=== PATIENT | female | born 1975 | race African-American/Black ===

== ENCOUNTER 2021-05-05 05:47 | Observation (INO) ==
[2021-05-05] MEDS ORDERED: SCOPOLAMINE 1.5 MG PATCH TRANSDERM ONE ×2 (06:59→07:30)
[2021-05-05] MEDS ORDERED: PANTOPRAZOLE 40 MG VIAL IV ONE ×2 (06:59→07:30)
[2021-05-05] MEDS ORDERED: ACETAMINOPHEN INJ 1,000 MG/100 ML VIAL IV ONE ×2 (07:00→07:30)
[2021-05-05] MEDS ORDERED: CLINDAMYCIN INJ 900 MG/50 ML PREMIX IV ONE ×2 (07:00→07:30)
[2021-05-05] MEDS ORDERED: HEPARIN 5,000 UNIT/1 ML VIAL ONE (07:07)
[2021-05-05] MEDS ORDERED: carvediloL 25 MG TABLET PO ONE ×2 (07:09→07:30)
[2021-05-05] MEDS ORDERED: HEPARIN 5,000 UNIT/1 ML VIAL SUBCUT ONE (07:30)
[2021-05-05] MEDS: LACTATED RINGERS 1,000 ML IV SCH ×4 (07:30→20:03)
[2021-05-05] MEDS ORDERED: HYOSCYAMINE 0.125 MG TABLET SL ONE (07:30)
[2021-05-05] MEDS ORDERED: BUPIVACAINE MPF 0.25% 30 ML VIAL ONE (09:13)
[2021-05-05] MEDS ORDERED: TISSUE ADHESIVE 1 EACH APPLICATOR TOP ONE (09:13)
[2021-05-05] MEDS ORDERED: LIDOCAINE 1%/EPI INJ 20 ML VIAL ONE (09:13)
[2021-05-05] MEDS ORDERED: BUPIVACAINE LIPOSOMAL 20 ML/266 MG VIAL ONE (09:22)
[2021-05-05] MEDS ORDERED: DEXAMETHASONE 4 MG/1 ML VIAL ONE (09:35)
[2021-05-05] MEDS ORDERED: propofoL 200 MG/20 ML VIAL IV ONE (09:35)
[2021-05-05] MEDS ORDERED: LIDOCAINE 2% 5 ML VIAL ONE (09:35)
[2021-05-05] MEDS ORDERED: ROCURONIUM 50 MG/5 ML VIAL IV ONE (09:35)
[2021-05-05] MEDS ORDERED: fentaNYL 100 MCG/2 ML VIAL ONE (09:35)
[2021-05-05] MEDS ORDERED: SUCCINYLCHOLINE 200 MG/10 ML VIAL ONE (09:35)
[2021-05-05] MEDS ORDERED: ONDANSETRON 4 MG/2 ML VIAL ONE (09:35)
[2021-05-05] MEDS ORDERED: ePHEDrine 50 MG/ML VIAL ONE (10:38)
[2021-05-05] MEDS ORDERED: PHENYLEPHRINE 1 MG/10 ML SYRINGE IV ONE (10:58)
[2021-05-05] MEDS ORDERED: DESFLURANE 1 UNIT/15 MINUTE INH ONE (11:01)
[2021-05-05] MEDS ORDERED: CALCIUM CHLORIDE 1,000 MG/10 ML VIAL IV ONE (11:01)
[2021-05-05] MEDS ORDERED: LACTATED RINGERS 2,000 ML IV ONE (11:02)
[2021-05-05] MEDS ORDERED: INDOCYANINE GREEN 25 MG VIAL IV ONE (11:04)
[2021-05-05] MEDS ORDERED: METOCLOPRAMIDE 10 MG/2 ML VIAL ONE (11:08)
[2021-05-05] MEDS ORDERED: diphenhydrAMINE 50 MG/1 ML VIAL IV PRN (11:14)
[2021-05-05] MEDS ORDERED: HYDROcod/ACETAMIN 7.5-325 MG/15 ML UDCUP PO PRN ×2 (11:14)
[2021-05-05] MEDS ORDERED: KETOROLAC 30 MG/1 ML VIAL ONE (11:21)
[2021-05-05] MEDS ORDERED: NEOSTIGMINE 10 MG/10 ML VIAL ONE (11:23)
[2021-05-05] MEDS ORDERED: GLYCOPYRROLATE 0.4 MG/2 ML VIAL ONE (11:23)
[2021-05-05] MEDS ORDERED: ONDANSETRON 4 MG/2 ML VIAL IV PRN (12:14)
[2021-05-05] MEDS: HYDROmorphone 2 MG/1 ML VIAL IV PRN ×2 (12:20→12:25)
[2021-05-05] MEDS: CLINDAMYCIN INJ 900 MG/50 ML PREMIX IV SCH ×2 (15:26→17:07)
[2021-05-05] MEDS: ONDANSETRON 4 MG/2 ML VIAL IV PRN (17:09)
[2021-05-05] MEDS ORDERED: ACETAMINOPHEN 325 MG/10.15 ML UDCUP PO PRN (17:53)
[2021-05-05] MEDS ORDERED: HYDROmorphone 2 MG/1 ML VIAL IV ONE (20:08)
[2021-05-05] MEDS ORDERED: ONDANSETRON 4 MG/2 ML VIAL IV ONE (20:10)
[2021-05-06] MEDS: HYDROmorphone 2 MG/1 ML VIAL IV PRN ×3 (00:06→08:55)
[2021-05-06] MEDS: ONDANSETRON 4 MG/2 ML VIAL IV PRN ×5 (00:06→21:18)
[2021-05-06] MEDS: CLINDAMYCIN INJ 900 MG/50 ML PREMIX IV SCH ×2 (00:07→05:38)
[2021-05-06] MEDS: LACTATED RINGERS 1,000 ML IV SCH ×4 (03:54→23:47)
[2021-05-06] MEDS: hydrALAZINE 20 MG/1 ML VIAL IV PRN (03:55)
[2021-05-06 05:20] LABS: Basophils % 0.1 % (0.0-0.8); Hematocrit 36.8 VOL% (35.7-47.0); Hemoglobin 11.6 GM/DL (12.0-16.0); Immature Granulocytes % 0.6 %; Immature Granulocytes Absolute 0.06 #; Lymphocytes # 1.5 10*3/uL (1.4-4.0); Mean Corpuscular HGB Conc 31.5 GM/DL (32-36); Mean Corpuscular Volume 85.4 FL (87-102); Monocytes % 4.1 % (1.7-12.7); Neutrophils % 81.2 % (38.7-73.9); Platelet Count 371 T/CUMM (130-400); Red Blood Count 4.31 MC/CUMM (3.8-5.5); Red Cell Distribution Width 13.8 % (9.3-17.3); White Blood Count 10.4 T/CUMM (4-12)
[2021-05-06 05:44] LABS: Potassium 3.9 MMOL/L (3.5-5.1)
[2021-05-06] MEDS: PANTOPRAZOLE 40 MG VIAL IV SCH (08:53)
[2021-05-06] MEDS: carvediloL 25 MG TABLET PO SCH ×2 (08:54→21:19)
[2021-05-06] MEDS: SIMETHICONE CHEW 80 MG TABLET PO SCH ×2 (14:28→21:19)
[2021-05-07] MEDS: LACTATED RINGERS 1,000 ML IV SCH ×2 (00:06→05:05)
[2021-05-07] MEDS: hydrALAZINE 20 MG/1 ML VIAL IV PRN (00:13)
[2021-05-07] MEDS: ONDANSETRON 4 MG/2 ML VIAL IV PRN ×2 (03:34→08:39)
[2021-05-07 07:57] VITALS: BP 147/65
[2021-05-07] MEDS: carvediloL 25 MG TABLET PO SCH (08:40)
[2021-05-07] MEDS: SIMETHICONE CHEW 80 MG TABLET PO SCH (08:40)
[2021-05-07] MEDS ORDERED: PROMETHAZINE 25 MG TABLET PO ONE (08:45)
[2021-05-07] MEDS: PANTOPRAZOLE 40 MG VIAL IV SCH (08:45)
[2021-05-07] MEDS ORDERED: ENOXAPARIN 40 MG/0.4 ML SYRINGE SUBCUT SCH (09:00)
== END 2021-05-07 11:13 | disposition home or self-care (01) ==
LOC: N.OR 05:47 → N.3E 05:47 → N.SDSINP 05:51 → N.3E 12:46
PROVIDERS: ADMIT Surgery; ATTEND Surgery